=== PATIENT | female | born 1955 | race Caucasian/White ===

== ENCOUNTER 2020-02-06 22:50 | Emergency (ER) | payer OTHER, SELFPAY ==
[2020-02-06 22:52] VITALS: BP 178/97; PULSE 67; RESP 18; TEMP 35.8; O2SAT 98; BMI 46.0
--- NOTE | 2020-02-06 23:01 | RAD_ITS ---
STUDY: X-RAY - LEFT HAND REASON FOR EXAM: Female, 64 years old. Fall. Injury to left wrist. TECHNIQUE: 3 view(s) of the hand. COMPARISON: Left wrist, 02/06/2020. FINDINGS: There is fractures of the distal radius and ulnar styloid. There is joint space narrowing of the radiocarpal articulation consistent with degenerative arthrosis. Normal distal radioulnar joint. Normal visualized carpal bones. There is degenerative joint disease of the scaphotrapezium / trapezoid articulation. The remainder of the carpal articulations are normal. There is degenerative arthrosis of the carpometacarpal (CMC) articulation of the thumb. Normal second through fifth carpometacarpal joints. Normal metacarpi. Normal metacarpophalangeal joint of the thumb. Normal interphalangeal joint of the thumb. Normal proximal and distal phalanges of the thumb. Normal metacarpophalangeal joints of the second through fifth fingers. There is diffuse articular joint space narrowing of the proximal and distal interphalangeal joints of the second through fifth fingers, but without erosive changes or periarticular soft tissue swelling. Normal phalanges of the second through fifth fingers. The soft tissue structures are unremarkable. RAD/Hand Min 3 Views IMPRESSION: 1. Fractures of the distal radius and ulna. 2. Degenerative changes of the hand and wrist. Electronically Signed: Ty Brown DO at 23:40 EST Tel [phone], Service support ,
--- NOTE | 2020-02-06 23:01 | RAD_ITS ---
STUDY: X-RAY - LEFT WRIST REASON FOR EXAM: Female, 64 years old. Fall. Pain in left wrist. TECHNIQUE: 3 view(s) of the wrist were obtained. COMPARISON: None. FINDINGS: There is a comminuted fracture of the distal radius with mild volar angulation. Fracture lines extend upward into the radiocarpal articulation. There is a nondisplaced fracture of the ulnar styloid. There is degenerative arthrosis of the radiocarpal articulation. Normal distal radioulnar articulation. Normal carpal bones. There is degenerative arthrosis of the carpal articulations. There is degenerative arthrosis of the carpometacarpal articulation of the thumb. Normal second through fifth carpometacarpal articulations. Normal visualized metacarpal bones. The soft tissue structures are unremarkable. RAD/Wrist min 3 Views IMPRESSION: Fractures of the distal radius and ulna. Electronically Signed: Ty Brown DO at 23:39 EST Tel [phone], Service support ,
--- NOTE | 2020-02-06 23:02 | ED.VIS.GEN ---
History of Present Illness Chief Complaint: Upper Extremity Injury Informant: Patient Narrative: 64-year-old female presenting with left wrist and hand pain. She states she was walking across the street and she went to step over what she thought was a snowy curb but there was no step. She slipped and fell backwards. She did not hit her head but did injure her left wrist and hand. She was able to stand up on her own. She sustained no lacerations or abrasions. Does have swelling over her left wrist. Past Medical History - Allergies and Home Meds Allergies/Adverse Reactions: Allergies amoxicillin Allergy (Verified 02/06/20 22:51) Swelling codeine Adverse Reaction (Verified 02/06/20 22:51) Vomiting Primary Care Physician: Jose Stack DO [Primary Care Provider] - Past Medical History: - - Arthritis Surgical History: noncontributory Lives: Spouse/ Significant Other Smoking Status: Never smoker Alcohol: None Drugs: None Review of Systems General: Denies: Chills, Fever, Sweats Eyes: Denies: Visual changes - bilaterally, Diplopia ENT: Denies: Rhinorrhea, Sore throat Cardiovascular: Denies: Chest pain, Palpitations Respiratory: Denies: Dyspnea, Cough, Dyspnea on exertion Gastrointestinal: Denies: Abdominal pain, Nausea, Vomiting, Diarrhea, Melena, Hematochezia Genitourinary: Denies: Dysuria, Hematuria, Frequency Musculoskeletal: Reports: Swelling - Left wrist, Extremity Pain - Left wrist and hand Skin: Denies: Rash, Wounds Neurological: Denies: Headache, Weakness, Numbness Psych: Denies: Depression, Anxiety, Suicidal thoughts, Suicidal ideations, -, - Physical Exam Vital Signs/Narrative: Vital Signs Temp Pulse Resp BP Pulse Ox 02/06/20 22:52 96.4 F L 67 18 178/97 H 98 General: Well nourished, Well developed Eyes: Perrl, EOMI ENT: Moist mucous membranes, No rhinorrhea Cardiovascular: Regular rate, Regular rhythm, No murmurs Respiratory: No distress, CTA bilaterally, Chest nontender Extremities: Tenderness - Left wrist and left hand, - - Noticed to palpation of left wrist and left hand. There are some swelling over the dorsal aspect of the left wrist. Limited range of motion in the left wrist due to pain. Patient has 5/5 handgrip. Left hand neurovascular intact. Skin: Normal color, No rash Neurological: Alert, Oriented x3 Psychological: Normal affect, Normal Mood Diagnostic/Tx/Re-eval - Medical Decision Making 63-year-old female with mechanical fall injuring her left wrist. X-ray of the left wrist and hand as interpreted by myself and the radiologist show a distal radius fracture as well as ulnar styloid fracture patient was given [place] for pain. A well-padded AP splint was placed on her left wrist. Patient tolerated procedure well. She is neurovascular intact after placement. She is given follow-up with orthopedics. Patient stable discharge at this time. Impression: 1. Left wrist fracture ED Disposition - Plan for ED Patient: Disposition: Home or Assisted Living Instructions: ED Fracture, Wrist, General Referrals: Jose Stack DO [Primary Care Provider] - Reyes Bertrand DO [STAFF PHYSICIAN] -
[2020-02-06] MEDS: HYDROcodone Bitartrate/Apap 5/325 Tablet PO (23:09)
[2020-02-07 01:39] VITALS: BP 170/78; PULSE 64; RESP 16; O2SAT 97
== END 2020-02-07 01:40 | disposition home or self-care (01) ==
PROVIDERS: Emergency Provider Student in an Organized Health Care Education/Training Program; PCP Student in an Organized Health Care Education/Training Program
DX: S52.615A Nondisplaced fracture of left ulna styloid process, initial encounter for closed fracture (principal); S52.502A Unspecified fracture of the lower end of left radius, initial encounter for closed fracture; W01.0XXA Fall on same level from slipping, tripping and stumbling without subsequent striking against object, initial encounter; Y93.01 Activity, walking, marching and hiking; Y92.410 Unspecified street and highway as the place of occurrence of the external cause; Y99.8 Other external cause status; M19.90 Unspecified osteoarthritis, unspecified site
CPT/HCPCS: 29125; 73110; 73130; 99283